=== PATIENT | male | born 1990 | race Two or more races ===

== ENCOUNTER 2022-04-23 17:44 | Emergency (ER) | payer MEDICAID, OTHER ==
[~2022-04-23] VITALS: Ht 180.3 cm; Wt 138.0 kg
[2022-04-23] MEDS ORDERED: BACITRACIN ZINC OINT UDPKT TOP ONE (18:15)
[2022-04-23] MEDS ORDERED: LIDOCAINE HCL/EPINEPHRINE 1%-EPI 1:100,000 20 ML VIAL INFIL ONE (18:15)
[2022-04-23] MEDS ORDERED: TETANUS, DIPHTHERIA, PERTUSSIS VAC/PF 0.5ML (>10YR OLD) IM ONE (18:15)
[2022-04-23] MEDS ORDERED: KETOROLAC 30MG/ML VIAL IV ONE (18:15)
[2022-04-23] MEDS ORDERED: LIDOCAINE HCL/EPINEPHRINE 1%-EPI 1:100,000 50 ML VIAL INFIL SCH (18:45)
[2022-04-23] MEDS ORDERED: IBUP-2029 MT (19:54)
[2022-04-23] MEDS ORDERED: CEPH500T MT (19:54)
[2022-04-23 20:06] VITALS: BP 134/82
== END 2022-04-23 20:12 | disposition home or self-care (01) ==
LOC: ER 17:44
DX: S51.811A Laceration without foreign body of right forearm, initial encounter (principal); Y07.04 Female partner, perpetrator of maltreatment and neglect; R03.0 Elevated blood-pressure reading, without diagnosis of hypertension; X99.1XXA Assault by knife, initial encounter; Y93.89 Activity, other specified; Y92.89 Other specified places as the place of occurrence of the external cause
CPT/HCPCS: 12002; 96374; 99283; J1885; J3490

== ENCOUNTER 2022-08-26 21:35 | Emergency (ER) | payer MEDICAID ==
[~2022-08-26] VITALS: Ht 180.3 cm; Wt 155.0 kg
[~2022-08-26 21:35] MED LIST: CEPH500T MT; IBUP-2029 MT
[2022-08-26 21:41] VITALS: BP 108/78
[2022-08-26] MEDS ORDERED: CIPHCO LEFT EAR ×2 (22:38)
[2022-08-26] MEDS ORDERED: TC025C15 TP (22:38)
[2022-08-26] MEDS ORDERED: IBUP-2028 MT (22:46)
[2022-08-26] MEDS ORDERED: OFLO5DRO4 LEFT EAR (23:00)
== END 2022-08-26 23:25 | disposition home or self-care (01) ==
LOC: ER 22:11
DX: H60.92 Unspecified otitis externa, left ear (principal); L30.9 Dermatitis, unspecified; J45.909 Unspecified asthma, uncomplicated; Z79.899 Other long term (current) drug therapy
CPT/HCPCS: 99283